=== PATIENT | female | born 1945 | race Caucasian/White ===

== ENCOUNTER 2023-01-31 11:06 | Outpatient (CLI) | payer MEDICARE | END 2023-01-31 11:07 | disposition home or self-care (01) | LOC: CSHCP 11:06 | PROVIDERS: ATTEND Radiology Radiation Oncology | DX: C34.12 Malignant neoplasm of upper lobe, left bronchus or lung (principal); J44.9 Chronic obstructive pulmonary disease, unspecified; R94.2 Abnormal results of pulmonary function studies | CPT/HCPCS: 94010; 94726; 94729; 94760 ==